=== PATIENT | female | born 1995 | race African-American/Black ===

== ENCOUNTER 2022-02-21 22:24 | Emergency (ER) | payer MEDICAID, OTHER ==
[~2022-02-21] VITALS: Ht 180.3 cm; Wt 82.0 kg
[2022-02-22] MEDS ORDERED: SODIUM CHLORIDE 0.9% 1,000 ML IV ONE (01:15)
[2022-02-22 01:40] LABS: HEMATOCRIT. 39.9 % (36.0-48.0); HEMOGLOBIN. 13.6 g/dL (12.0-16.0); LYMPHOCYTES % 42.6 % (20.0-50.0); MEAN CORPUSCULAR HEMOGLOBIN 33.7 pg (28.0-32.0); MEAN CORPUSCULAR VOLUME 98.5 fL (81.0-99.0); MEAN PLATELET VOLUME 8.2 fl (7.4-10.4); MONOCYTES % 12.5 % (2.0-8.0); NEUTROPHILS % 42.9 % (40.0-76.0); PLATELET 284 x1000/uL (130-400); RED BLOOD CELL COUNT 4.05 mill/uL (4.2-5.4); RED CELL DISTRIBUTION WIDTH 13.9 % (11.6-14.6)
[2022-02-22 01:43] LABS: CHLORIDE 102 mEq/L (98-107)
[2022-02-22 01:52] LABS: ETHANOL BLOOD 244 mg/dL
[2022-02-22 01:55] LABS: HCG SCREEN NEGATIVE
[2022-02-22 06:00] VITALS: BP 121/78
== END 2022-02-22 07:43 | disposition home or self-care (01) ==
LOC: ER 22:24
DX: F10.129 Alcohol abuse with intoxication, unspecified (principal); F12.90 Cannabis use, unspecified, uncomplicated; Y90.8 Blood alcohol level of 240 mg/100 ml or more; R74.02 Elevation of levels of lactic acid dehydrogenase [LDH]
CPT/HCPCS: 36415; 80053; 80307; 80320; 80329; 82140; 82962; 83605; 84703; 85025; 96360; 99285; J7030; G0480